=== PATIENT | male | born 1975 | race American Indian/Alaskan Native ===

== ENCOUNTER 2017-11-12 11:38 | Emergency (ER) | payer SELFPAY ==
[2017-11-12 13:12] LABS: Basophils % (Auto) 0.5 % (0.0-1.8); Eosinophils # (Auto) 0.2 K/mm3 (0.0-0.4); Hematocrit 37.3 % (35.5-45.6); Hemoglobin 12.7 gm/dl (11.8-15.2); Lymphocytes # (Auto) 0.8 K/mm3 (1.2-5.4); Lymphocytes % (Auto) 15.2 % (13.4-35.0); Mean Corpuscular HGB Conc 34 % (32-34); Mean Corpuscular Hemoglobin 35 pg (28-32); Mean Corpuscular Volume 104 fl (84-94); Monocytes # (Auto) 0.3 K/mm3 (0.0-0.8); Monocytes % (Auto) 6.4 % (0.0-7.3); Platelet Count 199 K/mm3 (140-440); Red Blood Count 3.58 M/mm3 (3.65-5.03); Red Cell Distribution Width 14.7 % (13.2-15.2)
[2017-11-12] MEDS ORDERED: ZOFRAN IV ONE (13:15)
[2017-11-12] MEDS ORDERED: ATIVAN IV PRN ×3 (13:15)
[2017-11-12] MEDS ORDERED: LIBRIUM PO PRN (13:15)
[2017-11-12] MEDS ORDERED: VITAMIN B-1 100 MG, FOLVITE 1 MG, INFUVITE 10 ML in NACL 0.9% 1000 ML 1,000 ML IV ONE (13:15)
--- NOTE | 2017-11-12 13:16 | Emergency Department Report ---
ED Alcohol HPI - General Chief Complaint: Nausea/Vomiting/Diarrhea Stated Complaint: ETOH Time Seen by Provider: 11/12/17 13:00 Source: patient, family, EMS (ems notes not available at time of chart dictation), RN notes reviewed Mode of arrival: Stretcher Limitations: No Limitations - History of Present Illness Initial Comments: This is a 42-year-old male, who is unknown to this provider, has a history of alcohol dependence, presents to the ER with a complaint of alcohol withdrawal, and requests detox for alcohol withdrawal. His last drink was yesterday. His symptoms are constant. They do not radiate anywhere. They worsen when he is not consuming alcohol. They decreased when he consumes alcohol. He has no headache, neck pain, chest pain, abdominal pain, shortness of breath. He denies urinary symptoms, endorses nausea and vomiting and tremors. He is not homicidal or suicidal. He was given Ativan, banana bag in the emergency room, and these both improved his symptoms. MD Complaint: alcohol withdrawal, alcohol dependence, desires rehab, medical clearance for det Chronic Alcohol Use: Yes Recent Trauma: No Associated Symptoms: nausea, vomiting, tremors. denies: syncope, seizure, diaphoresis, abdominal pain, hematemesis, melena, depression, suicidality Treatments Prior to Arrival: none - Related Data Previous Rx's Medication Instructions Recorded Last Taken Type Ondansetron [Zofran Odt] 4 mg PO Q8HR PRN #20 tab.rapdis 11/12/17 Unknown Rx chlordiazePOXIDE [Librium] 25 mg PO Q6H PRN #30 capsule 11/12/17 Unknown Rx Allergies Allergy/AdvReac Type Severity Reaction Status Date / Time No Known Allergies Allergy Unverified 11/12/17 12:15 ED Review of Systems ROS: Stated complaint: ETOH Other details as noted in HPI Constitutional: denies: fever Eyes: denies: vision change ENT: denies: epistaxis Respiratory: denies: cough Cardiovascular: denies: chest pain Gastrointestinal: nausea Genitourinary: denies: dysuria Psychiatric: denies: suicidal thoughts ED Past Medical Hx - Past Medical History Previous Medical History?: Yes Hx Hypertension: Yes Hx Diabetes: Yes Additional medical history: ETOH dependent; states "he states a pill for his heart flutter." - Social History Smoking Status: Current Every Day Smoker Substance Use Type: Alcohol - Medications Home Medications: Home Medications Medication Instructions Recorded Confirmed Last Taken Type Ondansetron [Zofran Odt] 4 mg PO Q8HR PRN #20 tab.rapdis 11/12/17 Unknown Rx chlordiazePOXIDE [Librium] 25 mg PO Q6H PRN #30 capsule 11/12/17 Unknown Rx ED Physical Exam - General Limitations: No Limitations General appearance: alert, anxious - Head Head exam: Present: atraumatic, normocephalic - Eye Eye exam: Present: normal appearance, EOMI - ENT ENT exam: Present: mucous membranes dry, other (active tongue fasciculations noted) - Neck Neck exam: Present: normal inspection, full ROM. Absent: tenderness, meningismus - Respiratory Respiratory exam: Present: normal lung sounds bilaterally. Absent: respiratory distress - Cardiovascular Cardiovascular Exam: Present: regular rate, normal rhythm, normal heart sounds. Absent: bradycardia, tachycardia, irregular rhythm, systolic murmur, diastolic murmur, rubs, gallop - GI/Abdominal GI/Abdominal exam: Present: soft, normal bowel sounds. Absent: distended, tenderness, guarding, rebound, rigid, pulsatile mass - Rectal Rectal exam: Present: deferred - Extremities Exam Extremities exam: Present: normal inspection, full ROM, normal capillary refill. Absent: pedal edema, joint swelling, calf tenderness - Back Exam Back exam: Present: normal inspection, full ROM. Absent: tenderness, CVA tenderness (R), paraspinal tenderness, vertebral tenderness - Neurological Exam Neurological exam: Present: alert, oriented X3, CN II-XII intact, other ( Extraocular movements intact. Tongue midline. No facial droop. Facial sensation intact to light touch in the V1, V2, V3 distribution bilaterally. 5 and 5 strength in 4 extremities.. Sensation is intact to light touch in 4 extremities.). Absent: motor sensory deficit - Psychiatric Psychiatric exam: Present: anxious. Absent: homicidal ideation, suicidal ideation - Skin Skin exam: Present: warm, dry, intact, normal color. Absent: rash ED Course Vital Signs 11/12/17 11/12/17 11/12/17 12:09 12:30 13:01 Temperature 98.5 F Pulse Rate 88 88 120 H Respiratory 26 H 18 20 Rate Blood Pressure 158/94 135/74 135/74 Blood Pressure 158/94 [Left] O2 Sat by Pulse 99 98 98 Oximetry 11/12/17 11/12/17 11/12/17 13:30 14:00 14:30 Temperature Pulse Rate 92 H 102 H 99 H Respiratory 18 16 18 Rate Blood Pressure 128/83 116/77 115/78 Blood Pressure [Left] O2 Sat by Pulse 98 98 94 Oximetry 11/12/17 11/12/17 15:00 15:30 Temperature Pulse Rate 93 H 89 Respiratory 18 20 Rate Blood Pressure 122/80 124/78 Blood Pressure [Left] O2 Sat by Pulse 100 97 Oximetry - Reevaluation(s) Reevaluation #1: 11/12/17 16:53 Patient's vital signs have remained stable while in the emergency department. His symptoms were much improved with Ativan. He was seen in conjunction with crisis, and provided outpatient resources for alcohol cessation. He will be discharged with as needed Xiang Briones. ED Medical Decision Making - Lab Data Result diagrams: 11/12/17 13:00 11/12/17 13:04 Vital Signs 11/12/17 12:09 Temperature 98.5 F Pulse Rate 88 Respiratory 26 H Rate Blood Pressure 158/94 Blood Pressure 158/94 [Left] O2 Sat by Pulse 99 Oximetry Lab Results 11/12/17 11/12/17 11/12/17 Range/Units 12:27 13:00 13:04 WBC 5.4 (4.5-11.0) K/mm3 RBC 3.58 L (3.65-5.03) M/mm3 Hgb 12.7 (11.8-15.2) gm/dl Hct 37.3 (35.5-45.6) % MCV 104 H (84-94) fl MCH 35 H (28-32) pg MCHC 34 (32-34) % RDW 14.7 (13.2-15.2) % Plt Count 199 (140-440) K/mm3 Lymph % (Auto) 15.2 (13.4-35.0) % [place] % (Auto) 6.4 (0.0-7.3) % Eos % (Auto) 4.0 (0.0-4.3) % Baso % (Auto) 0.5 (0.0-1.8) % Lymph # 0.8 L (1.2-5.4) K/mm3 [place] # 0.3 (0.0-0.8) K/mm3 Eos # 0.2 (0.0-0.4) K/mm3 Baso # 0.0 (0.0-0.1) K/mm3 Seg Neutrophils % 73.9 H (40.0-70.0) % Seg Neutrophils # 4.0 (1.8-7.7) K/mm3 Sodium 135 L (137-145) mmol/L Potassium 4.8 (3.6-5.0) mmol/L Chloride 95.3 L (98-107) mmol/L Carbon Dioxide 26 (22-30) mmol/L Anion Gap 19 mmol/L BUN 13 (9-20) mg/dL Creatinine 0.8 (0.8-1.5) mg/dL Estimated GFR > 60 ml/min BUN/Creatinine Ratio 16 % Glucose 152 H (75-100) mg/dL POC Glucose 174 H (70-105) Calcium 9.2 (8.4-10.2) mg/dL Magnesium (1.7-2.3) mg/dL Total Bilirubin 0.50 (0.1-1.2) mg/dL Direct Bilirubin < 0.2 (0-0.2) mg/dL Indirect Bilirubin 0.3 mg/dL AST 76 H (5-40) units/L ALT 79 H (7-56) units/L Alkaline Phosphatase 81 (35-129) units/L Total Creatine Kinase (55-170) units/L Troponin T < 0.010 (0.00-0.029) ng/mL Total Protein 7.0 (6.3-8.2) g/dL Albumin 4.0 (3.9-5) g/dL Albumin/Globulin Ratio 1.3 % Amylase 119 (27-131) units/L Lipase 48 (13-60) units/L Urine Color (Yellow) Urine Turbidity (Clear) Urine pH (5.0-7.0) Ur Specific [place] (1.003-1.030) Urine Protein (Negative) mg/dL Urine Glucose (UA) (Negative) mg/dL Urine Ketones (Negative) mg/dL Urine Blood (Negative) Urine Nitrite (Negative) Urine Bilirubin (Negative) Urine Urobilinogen (<2.0) mg/dL Ur Leukocyte Esterase (Negative) Urine WBC (Auto) (0.0-6.0) /HPF Urine RBC (Auto) (0.0-6.0) /HPF U Epithel Cells (Auto) (0-13.0) /HPF Salicylates (2.8-20.0) mg/dL Acetaminophen (10.0-30.0) ug/mL Plasma/Serum Alcohol (0-0.07) % 11/12/17 11/12/17 11/12/17 Range/Units 13:04 13:06 13:06 WBC (4.5-11.0) K/mm3 RBC (3.65-5.03) M/mm3 Hgb (11.8-15.2) gm/dl Hct (35.5-45.6) % MCV (84-94) fl MCH (28-32) pg MCHC (32-34) % RDW (13.2-15.2) % Plt Count (140-440) K/mm3 Lymph % (Auto) (13.4-35.0) % [place] % (Auto) (0.0-7.3) % Eos % (Auto) (0.0-4.3) % Baso % (Auto) (0.0-1.8) % Lymph # (1.2-5.4) K/mm3 [place] # (0.0-0.8) K/mm3 Eos # (0.0-0.4) K/mm3 Baso # (0.0-0.1) K/mm3 Seg Neutrophils % (40.0-70.0) % Seg Neutrophils # (1.8-7.7) K/mm3 Sodium (137-145) mmol/L Potassium (3.6-5.0) mmol/L Chloride (98-107) mmol/L Carbon Dioxide (22-30) mmol/L Anion Gap mmol/L BUN (9-20) mg/dL Creatinine (0.8-1.5) mg/dL Estimated GFR ml/min BUN/Creatinine Ratio % Glucose (75-100) mg/dL POC Glucose (70-105) Calcium (8.4-10.2) mg/dL Magnesium 1.50 L (1.7-2.3) mg/dL Total Bilirubin (0.1-1.2) mg/dL Direct Bilirubin (0-0.2) mg/dL Indirect Bilirubin mg/dL AST (5-40) units/L ALT (7-56) units/L Alkaline Phosphatase (35-129) units/L Total Creatine Kinase 186 H (55-170) units/L Troponin T (0.00-0.029) ng/mL Total Protein (6.3-8.2) g/dL Albumin (3.9-5) g/dL Albumin/Globulin Ratio % Amylase (27-131) units/L Lipase (13-60) units/L Urine Color (Yellow) Urine Turbidity (Clear) Urine pH (5.0-7.0) Ur Specific [place] (1.003-1.030) Urine Protein (Negative) mg/dL Urine Glucose (UA) (Negative) mg/dL Urine Ketones (Negative) mg/dL Urine Blood (Negative) Urine Nitrite (Negative) Urine Bilirubin (Negative) Urine Urobilinogen (<2.0) mg/dL Ur Leukocyte Esterase (Negative) Urine WBC (Auto) (0.0-6.0) /HPF Urine RBC (Auto) (0.0-6.0) /HPF U Epithel Cells (Auto) (0-13.0) /HPF Salicylates < 0.3 L (2.8-20.0) mg/dL Acetaminophen (10.0-30.0) ug/mL Plasma/Serum Alcohol < 0.01 (0-0.07) % 11/12/17 11/12/17 Range/Units 13:06 13:33 WBC (4.5-11.0) K/mm3 RBC (3.65-5.03) M/mm3 Hgb (11.8-15.2) gm/dl Hct (35.5-45.6) % MCV (84-94) fl MCH (28-32) pg MCHC (32-34) % RDW (13.2-15.2) % Plt Count (140-440) K/mm3 Lymph % (Auto) (13.4-35.0) % [place] % (Auto) (0.0-7.3) % Eos % (Auto) (0.0-4.3) % Baso % (Auto) (0.0-1.8) % Lymph # (1.2-5.4) K/mm3 [place] # (0.0-0.8) K/mm3 Eos # (0.0-0.4) K/mm3 Baso # (0.0-0.1) K/mm3 Seg Neutrophils % (40.0-70.0) % Seg Neutrophils # (1.8-7.7) K/mm3 Sodium (137-145) mmol/L Potassium (3.6-5.0) mmol/L Chloride (98-107) mmol/L Carbon Dioxide (22-30) mmol/L Anion Gap mmol/L BUN (9-20) mg/dL Creatinine (0.8-1.5) mg/dL Estimated GFR ml/min BUN/Creatinine Ratio % Glucose (75-100) mg/dL POC Glucose (70-105) Calcium (8.4-10.2) mg/dL Magnesium (1.7-2.3) mg/dL Total Bilirubin (0.1-1.2) mg/dL Direct Bilirubin (0-0.2) mg/dL Indirect Bilirubin mg/dL AST (5-40) units/L ALT (7-56) units/L Alkaline Phosphatase (35-129) units/L Total Creatine Kinase (55-170) units/L Troponin T (0.00-0.029) ng/mL Total Protein (6.3-8.2) g/dL Albumin (3.9-5) g/dL Albumin/Globulin Ratio % Amylase (27-131) units/L Lipase (13-60) units/L Urine Color Yellow (Yellow) Urine Turbidity Clear (Clear) Urine pH 5.0 (5.0-7.0) Ur Specific [place] 1.025 (1.003-1.030) Urine Protein 30 mg/dl (Negative) mg/dL Urine Glucose (UA) 50 (Negative) mg/dL Urine Ketones 20 (Negative) mg/dL Urine Blood Neg (Negative) Urine Nitrite Neg (Negative) Urine Bilirubin Neg (Negative) Urine Urobilinogen < 2.0 (<2.0) mg/dL Ur Leukocyte Esterase Neg (Negative) Urine WBC (Auto) 1.0 (0.0-6.0) /HPF Urine RBC (Auto) 1.0 (0.0-6.0) /HPF U Epithel Cells (Auto) < 1.0 (0-13.0) /HPF Salicylates (2.8-20.0) mg/dL Acetaminophen < 5.0 L (10.0-30.0) ug/mL Plasma/Serum Alcohol (0-0.07) % - EKG Data -: EKG Interpreted by Me EKG shows normal: sinus rhythm, axis, intervals, QRS complexes, ST-T waves Rate: normal - EKG Data When compared to previous EKG there are: previous EKG unavailable Interpretation: normal EKG - Medical Decision Making Differential diagnosis, including but not limited to: Alcohol withdrawal, alcohol dependence, medical clearance for alcohol detox Assessment and plan: 42-year-old male who presents with probable alcohol withdrawal. He is afebrile with reassuring vital signs and does not meet 1013 criteria. Laboratory studies reviewed and appreciated, transaminitis is likely secondary to underlying alcohol consumption, he is given a banana bag and magnesium for his hypomagnesemia. His symptoms were much improved with Ativan and the aforementioned therapies, crisis team has been informed, and at this point in time, it does not appear that there is an immediate medical contraindication to detox therapy at this time. Critical care attestation.: If time is entered above; I have spent that time in minutes in the direct care of this critically ill patient, excluding procedure time. ED Disposition Clinical Impression: Alcohol withdrawal Qualifiers: Complication of substance-induced condition: uncomplicated Qualified Code(s): F10.230 - Alcohol dependence with withdrawal, uncomplicated Disposition: DC-01 TO HOME OR SELFCARE Is pt being admited?: No Does the pt Need Aspirin: No Condition: Good Instructions: Alcohol Withdrawal (ED) Additional Instructions: Laboratory studies demonstrated decreased magnesium level, increased liver function tests. This is most likely secondary to chronic alcohol consumption. Decrease or stop alcohol consumption. Take the medications as needed/directed. Follow up with outpatient detox resources as directed. Follow up with the primary care doctor for the aforementioned laboratory abnormalities within the next month. Avoid consumption of acetaminophen. Return to the ER right away with new pain, worsening pain, migration of pain, discomfort, lethargy, irritability, projectile vomiting, change in mental status, confusion, inability to tolerate liquid feeds. Referrals: PRIMARY CARE, [Primary Care Provider] - 3-5 Days [facility] [Outside] - 3-5 Days JIMMY BAIN MD [Staff Physician] - 3-5 Days
[2017-11-12 13:41] LABS: Alanine Aminotransferase 79 units/L (7-56); BUN/Creatinine Ratio 16; Blood Urea Nitrogen 13 mg/dL (9-20); Calcium 9.2 mg/dL (8.4-10.2); Hemolysis Index 4; Lipase 48 units/L (13-60)
[2017-11-12 13:42] LABS: Bilirubin,Direct < 0.2 mg/dL (0-0.2)
[2017-11-12 13:53] LABS: Bilirubin,Urine NEG (Negative); Blood,Urine NEG (Negative); Color,Urine Yellow (Yellow); Urobilinogen,Urine < 2.0 mg/dL (<2.0)
[2017-11-12] MEDS ORDERED: MAGNESIUM SULFATE 2GM/50ML 2 GM/50 ML BAG IV ONE (14:29)
[2017-11-12 18:10] VITALS: BP 127/83
== END 2017-11-12 17:50 | disposition home or self-care (01) ==
LOC: ED 11:38
DX: F10.230 Alcohol dependence with withdrawal, uncomplicated (principal); I10 Essential (primary) hypertension; E11.9 Type 2 diabetes mellitus without complications; F17.200 Nicotine dependence, unspecified, uncomplicated; Y90.9 Presence of alcohol in blood, level not specified; Z79.899 Other long term (current) drug therapy
CPT/HCPCS: 36415; 80053; 80074; 81001; 82150; 82550; 82962; 83690; 83735; 84484; 85025; 93005; 93010; 96365; 96366; 96368; 96375; 99284; G0480; J2060; J2405; J3411; J3475; J7030; 80320